=== PATIENT | female | born 1965 | race Caucasian/White ===

== ENCOUNTER 2020-07-10 12:05 | Emergency (ER) | payer MEDICAID, OTHER ==
[~2020-07-10] VITALS: Ht 165.1 cm; Wt 61.2 kg
[2020-07-10] MEDS ORDERED: HYDROcodone-ACET 5/325MG TAB PO ONE (14:45)
[2020-07-10 16:26] VITALS: BP 116/43
== END 2020-07-10 16:48 | disposition home or self-care (01) ==
LOC: ER 12:05
DX: M54.42 Lumbago with sciatica, left side (principal); E11.9 Type 2 diabetes mellitus without complications; Z90.710 Acquired absence of both cervix and uterus
CPT/HCPCS: 72110; 73700; 82962

== ENCOUNTER 2020-11-19 17:54 | Emergency (ER) | payer MEDICAID ==
[~2020-11-19] VITALS: Ht 165.1 cm; Wt 56.7 kg
[2020-11-19 20:01] VITALS: BP 98/58
[2020-11-19] MEDS ORDERED: IBUPROFEN 800 MG TAB PO ONE (20:30)
== END 2020-11-19 21:51 | disposition home or self-care (01) ==
LOC: ER 17:54
DX: S63.501A Unspecified sprain of right wrist, initial encounter (principal); M25.561 Pain in right knee; M25.562 Pain in left knee; E11.9 Type 2 diabetes mellitus without complications; F17.210 Nicotine dependence, cigarettes, uncomplicated; Z90.710 Acquired absence of both cervix and uterus; W18.39XA Other fall on same level, initial encounter; Y93.89 Activity, other specified; Y92.89 Other specified places as the place of occurrence of the external cause; Y99.8 Other external cause status
CPT/HCPCS: 73110; 73562